=== PATIENT | male | born 1995 | race Hispanic/Latino ===

== ENCOUNTER 2024-10-18 10:51 | Emergency (ER) | payer BC ==
[~2024-10-18] VITALS: Ht 177.8 cm; Wt 74.8 kg
[2024-10-18 11:15] LABS: INR 0.94 (0.85-1.15)
[2024-10-18 11:16] LABS: PARTIAL THROMBOPLASTIN TIME 22.5 SEC (26.3-35.5)
--- NOTE | 2024-10-18 11:18 | NUR ---
PT HAD BEEN PLACED IN ED BED 7 BUT NOW PLACED IN ED BED 13. REPORT WAS ENDORSED TO JANNY STOCK. PT IS NOW ALERT POST ADMINISTRATION OF NARCAN. HE IS A/OX3 AT THIS TIME-GCS OF 15. VSS. OXYGEN SAT 98%RA BUT PLACED ON 2 LITERS FOR SUPPORT. PT DID ADMIT TO SMOKING "WEED'FOR HIS "PAINS" BUT MAY HAVE TAKEN SOMETHING ELSE
[2024-10-18 11:20] LABS: CREATININE 1.3 mg/dL (0.5-1.3); MAGNESIUM 1.9 mg/dL (1.80-2.40); POTASSIUM 3.8 mmol/L (3.5-5.1)
[2024-10-18 11:24] LABS: BASOPHILS # (AUTO) 0.06 K/uL (0.00-0.20); BASOPHILS % (AUTO) 0.5 % (0.0-5.0); EOSINOPHILS # (AUTO) 0.09 K/uL (0.00-0.70); EOSINOPHILS % (AUTO) 0.7 % (0.0-8.0); HEMATOCRIT 44.1 % (42-54); IMMATURE GRANULOCYTE ABSOLUTE 0.14 K/uL (0-1); LYMPHOCYTES # (AUTO) 5.7 K/uL (1.0-4.8); MEAN CORPUSCULAR HEMOGLOBIN 29.7 pg (27.0-33.0); MEAN CORPUSCULAR HGB CONC 32.9 g/dL (32.0-36.0); MEAN CORPUSCULAR VOLUME 90.2 fL (79-99); MONOCYTES # (AUTO) 0.9 K/uL (0.1-1.0); MONOCYTES % (AUTO) 6.9 % (3.0-13.0); NEUTROPHILS % (AUTO) 46.8 % (40.0-77.0); PLATELET COUNT (AUTO) 430 K/uL (130-400); RED BLOOD CELL COUNT(AUTO) 4.89 MIL/uL (4.50-6.20); RED CELL DISTRIBUTION WIDTH 14.8 % (11.0-15.5); WHITE BLOOD COUNT (AUTO) 12.8 K/uL (4.8-10.8)
--- NOTE | 2024-10-18 11:31 | ERN ---
General Chief Complaint: CPR/Full Arrest Stated Complaint: UNRESPONSIVE Time Seen by MD: 10:56 Source: patient History of Present Illness Initial Comments Patient is a 49-year-old man brought in unresponsive. Patient was brought in from lobby in an unresponsive state. No family members at bedside. Allergies: Coded Allergies: No Known Drug Allergies (Unverified Allergy, Unknown, 10/18/24) Past Medical History Past Medical History: Unable to Obtain Past Surgical History: Unknown ROS Dictation Unable to perform due to patient being unresponsive Physical Exam Physical Exam Dictation VITAL SIGNS: Reviewed. GENERAL APPEARANCE: Alert, disoriented, acute distress, obese. HEAD AND FACE: Non-traumatic. EYES: PERRL, pink conjunctivas, eyelid no trauma, anterior chamber clear. EARS: Pinnas intact and no signs of trauma or erythema. Ear canals clear and no discharge. TMs no erythema. NOSE: No discharge, no bleeding. OROPHARYNX: Mouth normal, teeth no caries, tongue pink. Pharynx clear, no erythema. Tonsils no exudates, no abscesses noted. Mucous membrane moist. NECK: Supple, non-tender, no thyromegaly, no masses, no JVD, no bruits. BREAST: Deferred. CHEST: No tenderness, no crepitus, no paradoxical movement, no retractions. LUNGS: Clear, well-ventilated, symmetric, no rales, no wheezing, no rhonchi, no stridor, good breath sounds bilaterally. HEART: Regular rate, regular rhythm, no murmur, no gallops. VASCULAR: No peripheral edema. ABDOMEN: Soft, positive bowel sounds, nondistended, no guarding, nontender, no rebound, no masses no hepatomegaly, no splenomegaly, no Painting's sign, no he rnias. RECTAL: Deferred. GENITAL: Deferred. NEUROLOGICAL: Normal speech, gross motor function intact, gross sensory functio n intact. MUSCULOSKELETAL: Neck nontender, full range of motion, back nontender, full range of motion. EXTREMITIES: Nontender, full range of motion. SKIN: Color pink, dry, no turgor, no rash, no lacerations, no abrasions, no contusions. LYMPHATICS: Deferred. Results Laboratory and Microbiology Lab and Micro Result Laboratory Tests Test 10/18/24 10:56 10/18/24 10:59 10/18/24 14:00 Whole Blood Glucose 212 MG/DL (70-110) H White Blood Count 12.8 K/uL (4.8-10.8) H Red Blood Count 4.89 MIL/uL (4.50-6.20) Hemoglobin 14.5 g/dL (14.0-18.0) Hematocrit 44.1 % (42-54) Mean Corpuscular Volume 90.2 fL (79-99) Mean Corpuscular Hemoglobin 29.7 pg (27.0-33.0) Mean Corpuscular Hemoglobin Concent 32.9 g/dL (32.0-36.0) Red Cell Distribution Width 14.8 % (11.0-15.5) Platelet Count 430 K/uL (130-400) H Mean Platelet Volume 10.0 fL (7.5-10.5) Immature Granulocyte % (Auto) 1.1 % (0-1) H Neutrophils (%) (Auto) 46.8 % (40.0-77.0) Lymphocytes (%) (Auto) 44.0 % (21.0-51.0) Monocytes (%) (Auto) 6.9 % (3.0-13.0) Eosinophils (%) (Auto) 0.7 % (0.0-8.0) Basophils (%) (Auto) 0.5 % (0.0-5.0) Neutrophils # (Auto) 6.0 K/uL (1.8-7.7) Lymphocytes # (Auto) 5.7 K/uL (1.0-4.8) H Monocytes # (Auto) 0.9 K/uL (0.1-1.0) Eosinophils # (Auto) 0.09 K/uL (0.00-0.70) Basophils # (Auto) 0.06 K/uL (0.00-0.20) Absolute Immature Granulocyte (auto 0.14 K/uL (0-1) Segmented Neutrophils % 54 % (40-70) Lymphocytes % (Manual) 43 % (22-44) Nucleated Red Blood Cells 0.0 % (0.0-0.19) Differential Comment MANUAL DIFFERENTIAL Reactive Lymphocytes 3 % (0-0) H White Cell Morphology Comment ATYPICAL LYMPHS 1+ Platelet Morphology Comment INCREASED Red Blood Cell Morphology ANISO 1+ Prothrombin Time 10.0 SEC (9.6-11.6) Prothromb Time International Ratio 0.94 (0.85-1.15) Activated Partial Thromboplast Time 22.5 SEC (26.3-35.5) L Sodium Level 139 mmol/L (136-145) Potassium Level 3.8 mmol/L (3.5-5.1) Chloride Level 105 mmol/L (101-111) Carbon Dioxide Level 26 mmol/L (21-32) Blood Urea Nitrogen 10 mg/dL (7-18) Creatinine 1.3 mg/dL (0.5-1.3) Glomerular Filtration Rate Calc 68 mL/min (>90) Random Glucose 213 mg/dL (70-105) H Total Calcium 7.9 mg/dL (8.5-10.1) L Magnesium Level 1.90 mg/dL (1.80-2.40) Total Creatine Kinase 164 U/L (21-232) Troponin I High Sensitivity < 4 ng/L (4-75) L B-Type Natriuretic Peptide 10 pg/mL (0-100) Urine Color LIGHT-YELLOW (YELLOW) Urine Appearance CLEAR (CLEAR) Urine pH 5.5 (5.0-8.0) Urine Specific [place] 1.014 (1.001-1.031) Urine Protein NEGATIVE mg/dL (NEGATIVE) Urine Glucose (UA) NEGATIVE mg/dL (NEGATIVE) Urine Ketones NEGATIVE mg/dL (NEGATIVE) Urine Occult Blood NEGATIVE (NEGATIVE) Urine Nitrate NEGATIVE (NEGATIVE) Urine Bilirubin NEGATIVE mg/dL (NEGATIVE) Urine Urobilinogen 0.2 mg/dL (0.2-1.0) Urine Leukocyte Esterase NEGATIVE Gege/uL Urine Opiates Screen NEGATIVE (NEGATIVE) Urine Barbiturates Screen NEGATIVE (NEGATIVE) Urine Phencyclidine Screen NEGATIVE (NEGATIVE) Urine Amphetamines Screen NEGATIVE (NEGATIVE) Urine Benzodiazepines Screen POSITIVE (NEGATIVE) H Urine Cocaine Screen NEGATIVE (NEGATIVE) Urine Marijuana (THC) Screen POSITIVE (NEGATIVE) H Labs Reviewed?: Yes MDM MDM: Differential diagnosis: Drug overdose, cardiac arrest, Rationale: Tests considered and ordered secondary to shared decision making include: Previous outside records reviewed: Old ER visits. Risk of complication and/or morbidity or mortality of patient management: None Medications-Per medication reconciliation Need for hospitalization: Patient does not meet criteria for hospitalization. Patient is a 29-year-old male coming in to be evaluated for unresponsiveness. Patient received Narcan one dose IV fluids and was resuscitated. He states he feels much better in his rate to leave. Laboratory workups within normal limits. Patient is positive for benzodiazepines and cannabis. We will be disc harged in stable condition I did counselor aide him on a drug avoidance especially recreational drugs. ED Course Orders Procedure Category Date Status Time Cbc With Differential LAB 10/18/24 Complete 10:56 Prothrombin Time With LAB 10/18/24 Complete INR 10:56 B-Type Natriuretic LAB 10/18/24 Complete Peptide 10:56 Chest 1vw RAD 10/18/24 Resulted 10:56 12 Lead Ekg Tracing- EKG 10/18/24 Complete Technical 10:56 Lactated Ringers PHA 10/18/24 Complete 1000ml (Lactated 11:00 Magnesium LAB 10/18/24 Complete 10:56 Creatine Kinase, Total LAB 10/18/24 Complete 10:56 Troponin I High LAB 10/18/24 Complete Sensitivity 10:56 Urinalysis Profile LAB 10/18/24 Complete 10:56 Partial LAB 10/18/24 Complete Thromboplastin Time 10:56 Basic Metabolic Panel LAB 10/18/24 Complete 10:56 Drug Screen Urine LAB 10/18/24 Complete 10:56 Naloxone Hcl 0.4 Mg/1 PHA 10/18/24 Complete Ml Ml (Narcan 0.4m 11:01 Manual Differential LAB 10/18/24 Complete 10:59 Current Medications Medications (Trade) Dose Ordered Sig/Man Route PRN Reason Start Time Stop Time Status Last Admin Dose Admin Lactated Ringer's 1,000 ml @ 0 mls/hr ONCE ONCE IV 10/18/24 11:00 10/18/24 12:19 DC 10/18/24 12:22 Naloxone HCl (NARcan 0.4mg/1 mL) 0.4 mg STK-MED ONCE .ROUTE 10/18/24 11:01 10/18/24 11:02 DC 10/18/24 11:37 Vital Signs Date Time Temp Pulse Resp B/P (MAP) Pulse Ox O2 Delivery O2 Flow Rate FiO2 10/18/24 12:00 98.4 71 13 115/82 93 Room Air* 0 21 10/18/24 11:38 98.1 102 11 131/86 95 Room Air* 0 21 10/18/24 10:56 98.2 120 8 156/63 Room Air 0 DX & DISP Disposition: Discharge Departure Impression: Primary Impression: Polysubstance abuse Condition: Stable Additional Instructions: FOLLOW-UP WITH PRIMARY CARE PROVIDER IN 1 TO 2 DAYS. TAKE MEDICATIONS DIRECTED HERE IN THE EMERGENCY ROOM. OKAY TO CONTINUE HOME MEDICATIONS UNLESS OTHERWISE DISCUSSED DURING YOUR VISIT IN THE EMERGENCY ROOM TODAY. RETURN TO YOUR NEAREST EMERGENCY ROOM IF SYMPTOMS WORSEN OR IF THERE IS NO IMPROVEMENT. CALL 911 IF YOU NEED IMMEDIATE ASSISTANCE. TAKE TYLENOL [id number] NEEDED AND IF NO CONTRAINDICATIONS ARE PRESENT. INCREASE ORAL HYDRATION. A WOUND CULTURE OR URINE CULTURE WAS ORDERED HERE IN THE EMERGENCY ROOM DEPARTMENT PLEASE FOLLOW-UP WITH PRIMARY CARE PROVIDER AND ADVISE THEM TO GET REPEAT PORTS FROM OUR FACILITY. IF YOU HAD ANY TESFAYE WRAP/SPLINTS THAT WERE APPLIED HERE, PLEASE DO NOT REMOVE THEM UNTIL YOU SEE YOUR PRIMARY CARE OR SPECIALTY. Referrals: Referrals: SELF,REFERRAL (PCP) ZAN RODRIGUEZ MD Time of Disposition: 14:38 YEVGENIY BYRNES MD October 18, 2024 11:31
[2024-10-18] MEDS: NALoxone HCL 0.4 MG/1 ML ML ONE (11:37)
[2024-10-18 11:38] LABS: B-TYPE NATRIURETIC PEPTIDE 10 pg/mL (0-100)
--- NOTE | 2024-10-18 11:46 | EKG ---
[facility] Test Date: 2024-10-18 Test Time: 11:10:16 Pat Name: PARESH ACOSTA Department: ED Room: Gender: Cert Pharmacy Tech: [id number] : 1995 Requested By: YEVGENIY BYRNES Order Number: [id number] Reading MD: Marty Nickerson Measurements Intervals [place] Rate: 106 P: 51 [place]: 133 QRS: 40 QRSD: 94 T: 14 QT: 342 QTc: 455 Interpretive Statements Sinus tachycardia No previous ECG available for comparison Electronically Signed On 10-18-2024 16:18:51 CDT by Marty Nickerson Please click the below link to view image of tracing.
[2024-10-18 12:00] VITALS: BP 115/82; PULSE 71; RESP 13; TEMP 98.4; O2SAT 93
--- NOTE | 2024-10-18 12:10 | HMCIMG ---
Exam Type: CHEST 1VW Clinical Information: cpr Comparison: None Findings: The lungs are clear of infiltrates. The heart is normal in size. The bony and soft tissue structures of the chest are unremarkable. Impression: Clear lungs.
[2024-10-18 12:13] LABS: LYMPHOCYTES % (MANUAL) 43 % (22-44); REACTIVE LYMPHOCYTES 3 % (0-0); SEGMENTED NEUTROPHILS % 54 % (40-70); TOTAL CELLS COUNTED 100
[2024-10-18 12:14] LABS: MAN.DIFF COMMENT-IMPRESSION MANUAL DIFFERENTIAL
[2024-10-18 12:16] LABS: PLATELET MORPHOLOGY COMMENT INCREASED; WBC MORPHOLOGY ATYPICAL LYMPHS 1+
[2024-10-18] MEDS: LACTATED RINGERS 1000ML 1,000 ML IV ONE (12:22)
--- NOTE | 2024-10-18 12:57 | NUR ---
poor historian. Stated he does not know if he takes home medications.
[2024-10-18 14:11] LABS: ADD UA MICROSCOPIC NO; APPEARANCE,URINE CLEAR (CLEAR); BILIRUBIN,URINE NEGATIVE (NEGATIVE); COLOR,URINE LIGHT-YELLOW (YELLOW); GLUCOSE, URINE (UA) NEGATIVE (NEGATIVE); KETONES,URINE NEGATIVE (NEGATIVE); LEUKOCYTE ESTERASE ,URINE NEGATIVE Leu/uL (NEGATIVE); NITRATE,URINE NEGATIVE (NEGATIVE); OCCULT BLOOD,URINE NEGATIVE (NEGATIVE); PH,URINE 5.5 (5.0-8.0); PROTEIN,URINE NEGATIVE (NEGATIVE); UROBILINOGEN,URINE 0.2 mg/dL (0.2-1.0)
[2024-10-18 14:14] LABS: AMPHET/METH SCREEN,URINE NEGATIVE (NEGATIVE); BARBITURATE SCREEN, URINE NEGATIVE (NEGATIVE); BENZODIAZEPINES SCREEN,URINE POSITIVE (NEGATIVE); CANNABINOID SCREEN,URINE POSITIVE (NEGATIVE); COCAINE SCREEN,URINE NEGATIVE (NEGATIVE); OPIATE SCREEN,URINE NEGATIVE (NEGATIVE); PHENCYCLIDINE SCREEN,URINE NEGATIVE (NEGATIVE)
--- NOTE | 2024-10-18 14:53 | NUR ---
PATIENT WITH DISCHARGE ORDERS. PATIENT IS ALERT, ORIENTED IN PERSON, TIME, PLACE AND SITUATION. NO SIGNS OF RESPIRATORY DISTRESS NOTED, PATIENT IS AT ROOM AIR. DISCONTINUED IV ACCESS. DISCUSSED WITH PATIENT THE IMPORTANCE OF FOLLOWING UP WITH PCP IN 2-3 DAYS. PATIENT VERBALIZED UNDERSTANDING. VITAL SIGNS BEFORE PATIENT WAS DISCHARGED: BLOOD PRESSURE 120/78 MMHG PULSE 61 P/MIN RESPIRATIONS 11 O2 SATURATION 97% AT ROOM AIR TEMPERATURE 98.1
== END 2024-10-18 14:53 | disposition home or self-care (01) ==
LOC: EDBD 10:51 → EDH 10:51
DX: F19.10 Other psychoactive substance abuse, uncomplicated (principal)
CPT/HCPCS: 99285; 92950; 96374; 96361; 71045; 82550; 83735; 84484; 80048; 83880; 80305; 85025; 85610; 85730; 82948; 36415; 93005; 81003; J2310; 99284

== ENCOUNTER 2024-10-19 11:42 | Emergency (ER) | payer BC ==
[~2024-10-19] VITALS: Ht 180.3 cm; Wt 86.2 kg
[2024-10-19 11:42] VITALS: BP 0/0; PULSE 0; RESP 0; TEMP 96
[2024-10-19] MEDS ORDERED: EPINEPHrine 1MG/10ML(1:10,000) 0.1 MG/ML SYG ONE ×2 (11:58→11:59)
--- NOTE | 2024-10-19 12:02 | NUR ---
NEERAJ AT THIS TIME PER ERMD DR. BYRNES
--- NOTE | 2024-10-19 12:16 | ERN ---
General Chief Complaint: CPR/Full Arrest Stated Complaint: CPR Time Seen by MD: 12:04 Source: patient History of Present Illness Initial Comments Patient was brought in by ems after being found unresponsive. He had no pulse and crp was started. Patient did not respond to three epinephrines given. Allergies: Coded Allergies: No Known Drug Allergies (Unverified Allergy, Unknown, 10/18/24) Past Medical History Past Medical History: No Pertinent History Past Surgical History: None ROS Dictation unable to perform do to being in cardiac arrest. Physical Exam Physical Exam Dictation patient is intubated and unresponsive. MDM MDM: Differential diagnosis:drug overdose, cardiac arrest, Rationale: Tests considered and ordered secondary to shared decision making include: Previous outside records reviewed: Old ER visits. Risk of complication and/or morbidity or mortality of patient management: None Medications-Per medication reconciliation Need for hospitalization: Patient does not meet criteria for hospitalization. Need for emergency major/minor surgery: No Patient is a 29 y/o male brought to ed in cardiac arrest. Per ems patient had been using illicit drug use. Patient was brought in intubated but remained in asystole after three epinephrine dose given. In ed patient received 7 doses of epinephrine and was coded for 20 minutes. Thought out the whole process no ROSC was achieved . Decision was made to stop CPR do to no response after several dosis of epinephrine and multiple rounds of bicarb. Ultrasound evaluation of cardiac activity did not disclose cardia response to CPR. ED Course Orders Procedure Category Date Status Time Epinephrine PHA 10/19/24 Complete 1mg/10ml(1:10,000) 11:58 Epinephrine PHA 10/19/24 Complete 1mg/10ml(1:10,000) 11:59 Current Medications Medications (Trade) Dose Ordered Sig/Man Route PRN Reason Start Time Stop Time Status Last Admin Dose Admin Epinephrine HCl (ADRENaline 1MG SYG) 1 mg STK-MED ONCE .ROUTE 10/19/24 11:58 10/19/24 11:58 DC Epinephrine HCl (ADRENaline 1MG SYG) 1 mg STK-MED ONCE .ROUTE 10/19/24 11:59 10/19/24 11:59 DC Vital Signs Date Time Temp Pulse Resp B/P (MAP) Pulse Ox O2 Delivery O2 Flow Rate FiO2 10/19/24 11:42 96.1 0 0 0/0 0 15.0 DX & DISP Disposition: Departure Impression: Primary Impression: Cardiac arrest Condition: Referrals: SELF,REFERRAL (PCP) YEVGENIY BYRNES MD October 19, 2024 12:16
--- NOTE | 2024-10-19 12:24 | NUR ---
ETCO2 25-30 Addendum: 10/19/24 at 1225 by KOLTON WINTERS, RT RT Amended: Links added.
--- NOTE | 2024-10-19 12:31 | NUR ---
[facility] NOTIFIED AT THIS TIME, DOES QUALIFY, PER ANA LAURA A REP FROM [facility] WILL BE CALLING BACK.
--- NOTE | 2024-10-19 13:00 | NUR ---
[facility] CALLED BACK FROM [facility] , INFO GIVEN
--- NOTE | 2024-10-19 13:02 | NUR ---
REFER TO CODE BLUE SHEET AND CERTIFICATION OF FORM
--- NOTE | 2024-10-19 13:04 | NUR ---
[employer] OFFICER CARLOS MANUEL HAS BEEN SPEAKING W/THE FAMILY OUTSIDE OF ED BED 8. CURRENTLY THE PTS MOTHER WOULD LIKE TO GO BACK IN AND BE WITH THE BODY. JULISA HANCOCK/DG HAS ESCORTED HER BACK IN AND WILL REMAIN THERE UNTIL SHE LEAVES OR UNTIL JULISA GETS REPLACED BY ANOTHER EMPLOYEE
== END 2024-10-19 13:32 ==
LOC: EDH 11:42
DX: I46.9 Cardiac arrest, cause unspecified (principal)
CPT/HCPCS: 99285; 92950; 82948; 94799; J0171 ×2; 94770